=== PATIENT | female | born 1955 | race Caucasian/White ===

== ENCOUNTER 2018-06-08 08:27 | Inpatient (IN) | payer OTHER ==
[2018-05-31 14:02] VITALS: BMI 44.6
[~2018-06-08 08:27] MED LIST: BUPIVACAINE HCL/PF 0.5% (5MG/ML) 10 ML VIAL IJ ONE; ceFAZolin SODIUM 1 GM VIAL IVPB ONE
[2018-06-08] MEDS ORDERED: LIDOCAINE HCL/PF 2% SDV 5ML VIAL ONE (10:39)
[2018-06-08] MEDS ORDERED: ROCURONIUM BROMIDE 50 MG/5 ML VIAL ONE (10:40)
[2018-06-08] MEDS ORDERED: PROPOFOL 20 ML ONE (10:40)
[2018-06-08] MEDS ORDERED: fentaNYL CITRATE 250 MCG/5 ML VIAL ONE (10:40)
[2018-06-08] MEDS ORDERED: SUCCINYLCHOLINE CHLORIDE 200 MG/10 ML VIAL ONE (10:40)
[2018-06-08] MEDS ORDERED: BUPIVACAINE HCL/PF 0.5% (5MG/ML) 10 ML VIAL ONE ×2 (10:42→10:58)
[2018-06-08] MEDS ORDERED: MIDAZOLAM HCL 2 MG/2 ML SINGLE DOSE VIAL ONE (10:44)
[2018-06-08] MEDS ORDERED: ceFAZolin SODIUM 1 GM VIAL IVPB ONE (10:56)
[2018-06-08] MEDS ORDERED: ceFAZolin SODIUM 1 GM VIAL ONE (12:20)
[2018-06-08] MEDS ORDERED: GLYCOPYRROLATE 0.2 MG/1 ML VIAL ONE ×2 (12:20)
[2018-06-08] MEDS ORDERED: DEXAMETHASONE SOD PHOSPHATE 4 MG/1 ML VIAL ONE (12:20)
[2018-06-08] MEDS ORDERED: NEOSTIGMINE METHYLSULFATE 0.5 MG/ML - 10 ML MDV ONE (12:20)
[2018-06-08] MEDS ORDERED: BUPIVACAINE HCL/PF 0.5% (5MG/ML) 10 ML VIAL IJ ONE (12:21)
[2018-06-08] MEDS ORDERED: ONDANSETRON 4 MG/2 ML VIAL IVPUSH PRN (12:26)
--- NOTE | 2018-06-08 12:32 | OP ---
Operative Note - Note: Operative Date: 06/08/18 Pre-Operative Diagnosis: Morbid Obesity. Hypertension Operation: Laparoscopic Vertical Sleeve Gastrectomy. Diagnostic Laparoscopy Findings: Greater curve sleeve Gastrectomy performed with #[address] Surgeon: Santi Bullock Lawnmower Repair Mechanic: Marbella Cronin Anesthesia: General Specimens Removed: Greater curve of stomach Estimated Blood Loss (mls): 30 Operative Report Dictated: Yes
[2018-06-08] MEDS ORDERED: oxyCODONE HCL 5 MG TABLET PO PRN (12:41)
[2018-06-08] MEDS ORDERED: PROMETHAZINE HCL 25 MG/1 ML VIAL IVPB PRN (12:41)
--- NOTE | 2018-06-08 12:54 | SURG ---
Surgery Fly Raiser Lockstitch Note Fly Raiser Lockstitch: Marbella Cronin PA-C Date of Service: 06/08/18 Diagnosis: morbid obesity, HTN Procedure: Laparoscopic Vertical Sleeve Gastrectomy. Diagnostic Laparoscopy I was present for the entirety of the operative procedure. For further detail, please refer to operative report. Visit type - Case Type Case Type: Scheduled - Emergency Emergency Visit: No - New patient This patient is new to me today: Yes Date on this admission: 06/08/18
[2018-06-08] MEDS: ONDANSETRON 4 MG/2 ML VIAL IVPUSH PRN ×2 (12:55→20:14)
[2018-06-08] MEDS ORDERED: ONDANSETRON 4 MG/2 ML VIAL ONE (12:57)
[2018-06-08] MEDS ORDERED: METOCLOPRAMIDE HCL INJECTION 10 MG/2 ML VIAL ONE (12:57)
[2018-06-08] MEDS: METOCLOPRAMIDE HCL INJECTION 10 MG/2 ML VIAL IVPUSH SCH ×3 (13:15→21:16)
[2018-06-08 13:40] LABS: HEMATOCRIT 37.8 % (32.4-45.2); HEMOGLOBIN 12.9 GM/dL (10.7-15.3); MCH 29.6 pg (25.7-33.7); MCHC 34.1 g/dl (32.0-36.0); MEAN CELL VOLUME 87.1 fl (80-96); MEAN PLT VOLUME 8.2 fl (7.5-11.1); PLATELET COUNT 327 K/MM3 (134-434); RBC 4.34 M/mm3 (3.60-5.2)
[2018-06-08] MEDS: LABETALOL HCL 5 MG/1 ML (100MG/20 ML VIAL) IVPUSH ONE ×3 (14:10→15:49)
[2018-06-08 14:23] LABS: ALBUMIN 0.1 g/dl (3.4-5.0); ALK PHOS 82 U/L (45-117); ANION GAP 20 MMOL/L (8-16); BILIRUBIN,TOTAL 0.4 mg/dL (0.2-1); BLOOD UREA NITROGEN 14 mg/dL (7-18); CHLORIDE 110 mmol/L (98-107); CO2 12 mmol/L (21-32); CREATININE 0.8 mg/dL (0.55-1.3); POTASSIUM 3.6 mmol/L (3.5-5.1); SGOT/AST 33 U/L (15-37); SGPT/ALT 48 U/L (13-61); SODIUM 142 mmol/L (136-145); TOT PROT 7.5 g/dl (6.4-8.2)
[2018-06-08 14:43] LABS: CALCIUM 8.2 mg/dL (8.5-10.1); GLUCOSE,RANDOM 118 mg/dL (74-106)
[2018-06-08] MEDS: LACTATED RINGERS SOLUTION 1,000 ML IV SCH ×2 (15:36→16:43)
[2018-06-08] MEDS: SODIUM CHLORIDE 1,000 ML IV SCH (15:50)
[2018-06-08] MEDS: MORPHINE SULFATE 2 MG/ML VIAL IVPUSH PRN (20:08)
[2018-06-08] MEDS: FAMOTIDINE 20 MG/50 ML IVPB 20 MG/50 ML MG IVPB SCH (21:16)
[2018-06-08] MEDS: ENOXAPARIN NA (PORCINE) 40 MG/0.4 ML DISP.SYRIN SQ SCH (21:16)
[2018-06-09] MEDS: MORPHINE SULFATE 2 MG/ML VIAL IVPUSH PRN ×2 (00:57→09:10)
[2018-06-09] MEDS: METOCLOPRAMIDE HCL INJECTION 10 MG/2 ML VIAL IVPUSH SCH ×3 (03:43→15:02)
[2018-06-09] MEDS ORDERED: ACETAMINOPHEN 1000 MG/100 ML VIAL (NON FORMULARY) IVPB ONE (03:45)
[2018-06-09] MEDS: SODIUM CHLORIDE 1,000 ML IV SCH (05:41)
--- NOTE | 2018-06-09 07:53 | OP ---
DATE OF OPERATION: 06/08/2018 PREOPERATIVE DIAGNOSES: 1. Morbid obesity. 2. Hypertension. POSTOPERATIVE DIAGNOSES: 1. Morbid obesity. 2. Hypertension. 3. Abdominal adhesion. PROCEDURE PERFORMED: 1. Laparoscopic vertical sleeve gastrectomy. 2. Laparoscopic lysis of adhesions. 3. Diagnostic laparoscopy. OPERATING SURGEON: Santi Bullock MD LARGE ANIMAL VETERINARIAN: JAYA Tom ANESTHESIA: General. ESTIMATED BLOOD LOSS: 30 mL. DESCRIPTION OF PROCEDURE: The patient was brought into the operating room, placed on the OR table in a supine position. All precautions were taken initially including padding for the back and the feet, and Venodyne boots were placed on both lower extremities. At that point, the abdomen was prepped and draped in the usual manner. A Veress needle was placed in the left upper quadrant, and a pneumoperitoneum was established. Under direct vision, a No. 5 bladeless trocar with was placed in the left upper quadrant. Through that trocar, laparoscopic camera was placed. Under direct vision, a No. 15 bladeless trocar with vision was placed in the abdominal cavity, and through that trocar, laparoscopic camera was placed. Immediately upon placing the camera, there was noted to be large adhesions in the left upper quadrant of the abdomen. There were also adhesions noted in the midline in the area of the umbilicus from the previous surgeries the patient had in that area. In order to obtain visualization, a No. 5 bladeless trocar was now placed in the right upper quadrant. At this point, the camera was placed in the right upper quadrant, and this showed the area just around the umbilicus. There was a small clearing noted slightly above and to the right of the umbilicus. In that clearing, a No. 15 bladeless trocar was placed. Using that as a working port, the adhesions in the left upper quadrant between the omentum and the anterior abdominal wall were lysed mostly with sharp dissection with a laparoscopic scissor. Some of the adhesions were also lysed with the laparoscopic instrument bluntly. Once enough clearing was done in the left upper quadrant, which was a significant amount of adhesions, a No. 5 bladeless trocar was then placed in the left upper quadrant below the left costal margin. At this juncture, a Jose liver retractor was placed in the epigastrium to retract the left lobe of the liver. The patient was then placed in 20 degree review Trendelenburg position by Anesthesia. The operating surgeon now lifted the stomach toward the anterior abdominal wall as the planning assistant surgeon retracted the gastrocolic ligament inferiorly. Then 6 cm was measured proximally from the pylorus and here the LigaSure device was used to dissect the gastrocolic ligament off the greater curve of the stomach. This continued in a similar fashion as the planning assistant surgeon retracted the short gastric vessels laterally as the operating surgeon retracted the stomach medially. The LigaSure was now inside the short gastric vessels and divided them superiorly and vertically until the final short gastric vessel between the superior pole of the spleen and the proximal fundus was divided. At this juncture, Anesthesia advanced a No. 40 bougie. With the bougie held along the lesser curvature, a series of kris were performed with the first 2 being black load kris 6 cm in length along the bougie. This was followed by a series of purple load kris also 6 cm in length and also along the bougie. This continued in a vertical direction. Once completed, the greater curve was now completely detached from the lesser curve. It should be noted that prior to firing each staple, both the anterior and the posterior shi of the remaining lesser curvature were checked that they were equal, and in the area of esophagogastric junction approximately 1 to 1.5 cm of serosa remained on the anterior and posterior surfaces. At this juncture, saline was placed around the staple line, and Anesthesia inserted air into the bougie, which showed the entire lesser curvature distended. No signs of obstruction and no leaks were noted. At this point, the resected greater curve was removed through the No. 15 trocar site and sent off the field as specimen to Pathology. Under direct vision, the No. trocar site was closed with Endo Close device to prevent internal hernia and prevent bleeding. Under direct vision, all trocars were removed, and pneumoperitoneum was released. All trocar sites received 0.25% Marcaine. The No. 15 trocar was first closed with 3-0 Vicryl under subcutaneous tissue, and all trocar sites were closed with 4-0 Biosyn in a subcuticular fashion. Dressings were applied. The patient was awoken from anesthesia and transferred out of the operating room to the recovery room in stable condition. Rosetta [id number]
[2018-06-09 08:22] LABS: HEMATOCRIT 36.8 % (32.4-45.2); MCH 28.3 pg (25.7-33.7); MCHC 32.6 g/dl (32.0-36.0); MEAN CELL VOLUME 86.8 fl (80-96); MEAN PLT VOLUME 7.6 fl (7.5-11.1); PLATELET COUNT 348 K/MM3 (134-434); RBC 4.24 M/mm3 (3.60-5.2); RDW 14.3 % (11.6-15.6)
[2018-06-09 09:33] LABS: ALBUMIN 3.5 g/dl (3.4-5.0); ALK PHOS 75 U/L (45-117); ANION GAP 13 MMOL/L (8-16); BILIRUBIN,TOTAL 0.4 mg/dL (0.2-1); BLOOD UREA NITROGEN 14 mg/dL (7-18); CALCIUM 7.6 mg/dL (8.5-10.1); CHLORIDE 106 mmol/L (98-107); CO2 22 mmol/L (21-32); CREATININE 0.8 mg/dL (0.55-1.3); GLUCOSE,RANDOM 96 mg/dL (74-106); POTASSIUM 3.9 mmol/L (3.5-5.1); SGOT/AST 31 U/L (15-37); SGPT/ALT 40 U/L (13-61); SODIUM 141 mmol/L (136-145); TOT PROT 7.1 g/dl (6.4-8.2)
[2018-06-09] MEDS ORDERED: LOSARTAN POTASSIUM 50 MG TABLET (FP) PO SCH (10:00)
[2018-06-09] MEDS: FAMOTIDINE 20 MG/50 ML IVPB 20 MG/50 ML MG IVPB SCH (10:03)
[2018-06-09] MEDS: ENOXAPARIN NA (PORCINE) 40 MG/0.4 ML DISP.SYRIN SQ SCH (10:03)
[2018-06-09 15:30] VITALS: BP 153/87; PULSE 82; TEMP 98.1
[2018-06-09] MEDS ORDERED: ONDANSETRON 4 MG/2 ML VIAL ONE (15:34)
--- NOTE | 2018-06-09 17:38 | PN ---
Progress Note (short form) - Note Progress Note: POD#1 Afebrile; VSS Pt doing well No N/V Tolrerating PO clear liquids-m 2 oz po tid P/E-Abd- all trocar sited clean, dry WBC-13(decreased) H/H-12.0/36.8 UGI- no leak, no obstruction P- D/C pt home all instructions given to pt and daughter F/U in 5 days
[2018-06-09] MEDS ORDERED: ONDANSETRON 4 MG/2 ML VIAL IVPUSH PRN (17:48)
[2018-06-09] MEDS ORDERED: oxyCODONE HCL 5 MG TABLET PO PRN (17:49)
[2018-06-09] MEDS ORDERED: ACETAMINOPHEN 325 MG TABLET (FP) PO PRN (17:49)
--- NOTE | 2018-06-11 18:03 | PATH ---
Surgical Pathology Report Patient Name: DARYL PALENCIA Med. Rec. #: [id number] /Age/Gender: 1955 (Age: 63) / F Account: [id number] Location: 4 W TELEMETRY U Taken: 06/08/2018 Received: 06/08/2018 Reported: 06/11/2018 Physicians: aSnti Bullock M.D. Specimen(s) Received GREATER CURVATURE STOMACH Clinical History Morbid obesity Final Diagnosis STOMACH, GREATER CURVATURE, LAPAROSCOPIC VERTICAL SLEEVE GASTRECTOMY: PORTION OF STOMACH WITH MILD CHRONIC GASTRITIS. IMMUNOHISTOCHEMICAL STAIN FOR H. PYLORI IS NEGATIVE. Electronically Signed Mary Spence M.D. Gross Description Received in formalin, labeled "greater curvature of stomach," is a 137 gram, 19.0 x 4.8 x 3.7 cm. portion of stomach with a stapled margin of resection. The serosa is lane-mcgrath with minimal attached fat. The mucosa is lane-pink with normal folds. No mucosal masses are identified. Monument Letterer sections are submitted in one cassette. /06/08/2018 saudi06/08/2018
== END 2018-06-09 18:37 | disposition home or self-care (01) | DRG 621 ==
LOC: JASU-SURG 08:27 → JSAMEDAYSX 12:26 → J4W 15:25
PROVIDERS: ADMIT Surgery; ATTEND Surgery
PROC: 0DNW4ZZ Release Peritoneum, Percutaneous Endoscopic Approach (ICD-10-PCS; 2018-06-08)
PROC: 0DB64Z3 Excision of Stomach, Percutaneous Endoscopic Approach, Vertical (ICD-10-PCS; principal; 2018-06-08 10:00)
DX: E66.01 Morbid (severe) obesity due to excess calories (principal); Z68.41 Body mass index [BMI] 40.0-44.9, adult; I10 Essential (primary) hypertension; K66.0 Peritoneal adhesions (postprocedural) (postinfection)
CPT/HCPCS: 36415; 74241-TC-FY; 80053; 85027; 86850; 86900; 86901; 88307-TC; 94760; J0131; J7030

== ENCOUNTER 2023-02-20 04:37 | Day surgery (SDC) | payer OTHER ==
[2023-02-16 10:49] VITALS: BMI 39.4
[2023-02-20] MEDS ORDERED: PROPOFOL 20 ML ONE (17:31)
[2023-02-20] MEDS ORDERED: LIDOCAINE HCL/PF 2% SDV 5ML VIAL ONE (17:33)
[2023-02-20 18:29] VITALS: RESP 20; TEMP 97.2
[2023-02-20 18:31] VITALS: BP 125/81; PULSE 65
== END 2023-02-20 18:25 | disposition home or self-care (01) ==
LOC: JASU-SURG 04:37
PROVIDERS: ATTEND Urology
PROC: 0TC18ZZ Extirpation of Matter from Left Kidney, Via Natural or Artificial Opening Endoscopic (ICD-10-PCS; principal; 2023-02-20 16:00)
DX: N20.0 Calculus of kidney (principal)